=== PATIENT | male | born 1940 | race Caucasian/White ===

== ENCOUNTER 2019-02-21 20:39 | Emergency (ER) | payer BC ==
--- NOTE | 2019-02-21 21:28 | Emergency Department Record ---
History of Present Illness - General Chief complaint: Weakness Stated complaint: WEAKNESS,HEADACHE Time Seen by Provider: 02/21/19 21:23 Source: Patient Mode of Arrival: Ambulatory Limitations: No limitations - History of Present Illness Initial comments: 78 yo male presents to ED for intermittent symptoms of "lightheadedness" that occurred this afternoon around 13:00, again this evening. Following the first occurrence, patient went home, ate something thinking perhaps his blood glucose was low. Patient then laid down, felt better this evening until just prior to arrival. Patient reports intermittent headache as well, very mild currently. Patient denies fevers, chills, cough, urinary symptoms, or recent illness. Patient denies head injury, but does take Eliquis. MD Complaint: Generalized weakness Onset/Timin -: Hour(s) Location: Generalized Severity: Moderate Consistency: Intermittent Improves with: None Worsens with: None Associated Symptoms: Headaches - Joy Coma Scale Eye Response: (4) Open spontaneously Motor Response: (6) Obeys commands Verbal Response: (5) Oriented [place] Total: 15 - Related Data Home Medications Medication Instructions Recorded Confirmed Last Taken Apixaban [Eliquis] 1 tab PO DAILY 02/21/19 02/21/19 02/21/19 Carvedilol 1 tab PO BID 02/21/19 02/21/19 02/21/19 Clopidogrel Bisulfate [Clopidogrel] 1 tab PO DAILY 02/21/19 02/21/19 02/21/19 Donepezil HCl 1 tab PO DAILY 02/21/19 02/21/19 02/21/19 Memantine HCl [Memantine HCl ER] 1 tab PO DAILY 02/21/19 02/21/19 02/21/19 Allergies Allergy/AdvReac Type Severity Reaction Status Date / Time No Known Drug Allergies Allergy Verified 02/10/15 06:52 Travel Screening - Travel/Exposure Within Last 30 Days Have you traveled within the last 30 days?: No - Travel/Exposure Within Last Year Have you traveled outside the [place] in the last year?: No - Additonal Travel Details Have you been exposed to anyone with a communicable illness?: No - Travel Symptoms Symptom Screening: None Review of Systems Constitutional: Reports: Weakness. Denies: Chills, Fever, Malaise, Night sweats Eyes: Denies: Eye discharge, Eye pain ENT: Denies: Congestion, Ear pain, Epistaxis Respiratory: Denies: Cough, Dyspnea Cardiovascular: Denies: Chest pain, Dyspnea on exertion Endocrine: Reports: Fatigue. Denies: Heat or cold intolerance Gastrointestinal: Denies: Abdominal pain, Nausea, Vomiting Genitourinary: Denies: Incontinence, Retention Musculoskeletal: Denies: Arthralgia, Back pain, Gout, Joint swelling Skin: Denies: Bruising, Change in color Neurological: Reports: Headache. Denies: Abnormal gait, Confusion, Numbness, Tingling, Tremors Psychiatric: Denies: Anxiety Hematological/Lymphatic: Denies: Anemia, Blood Clots Past Medical History - SOCIAL HISTORY Smoking Status: Never smoker Alcohol Use: None Drug Use: None - RESPIRATORY Hx Respiratory Disorders: No - CARDIOVASCULAR Hx Cardio Disorders: Yes Hx Hypertension: Yes Hx Irregular Heartbeat: Yes (a-fib) - NEURO Hx Neuro Disorders: Yes Hx Dementia: Yes (early stages) - GI Hx GI Disorders: No Hx Liver Disease: Yes ("fatty liver") - Hx Genitourinary Disorders: No - ENDOCRINE Hx Endocrine Disorders: No Hx Thyroid Disease: Yes (slow) - MUSCULOSKELETAL Hx Musculoskeletal Disorders: No - PSYCH Hx Psych Problems: No - HEMATOLOGY/ONCOLOGY Hx Hematology/Oncology Disorders: No Family Medical History Any Significant Family History?: Yes Family Hx Comment (NOT TO BE USED IN PLACE OF ITEMS BELOW): thyroid-mother Hx Heart Disease: Father Hx Stroke: Mother Physical Exam - General General Appearance: Alert, Oriented x3, Cooperative, Mild distress Limitations: No limitations - Head Head exam: Atraumatic, Normocephalic, Normal inspection Head exam detail: negative: Abrasion, Contusion, Renae's sign, General tenderness, Hematoma, Laceration - Eye Eye exam: Normal appearance. negative: Conjunctival injection, Periorbital swelling, Periorbital tenderness, Scleral icterus - ENT Ear exam: negative: Auricular hematoma, Auricular trauma Nasal Exam: negative: Active bleeding, Discharge, Dried blood, Foreign body Mouth exam: negative: Drooling, Laceration, Muffled voice, Tongue elevation - Neck Neck exam: Normal inspection. negative: Meningismus, Tenderness - Respiratory Respiratory exam: Normal lung sounds bilaterally. negative: Chest wall tenderness, Rhonchi, Stridor, Wheezes - Cardiovascular Cardiovascular Exam: Regular rate, Normal rhythm, Normal heart sounds - GI/Abdominal GI/Abdominal exam: Soft, Distended. negative: Rebound, Rigid, Tenderness - Rectal Rectal exam: Deferred - exam: Deferred - Extremities Extremities exam: Other (Pale nail beds on examination.). negative: Joint swelling - Back Back exam: Denies: CVA tenderness (R), CVA tenderness (L) - Neurological Neurological exam: Alert, Normal gait, Oriented X3 - Psychiatric Psychiatric exam: Normal affect, Normal mood - Skin Skin exam: Normal color. negative: Abrasion Type of lesion: negative: abrasion Course Vital Signs 02/21/19 20:44 Temperature 97.7 F Pulse Rate [ 64 Pulse Ox Probe] Respiratory 20 Rate Blood Pressure 120/73 [Left Arm] Pulse Ox 92 L - Reevaluation(s) Reevaluation #1: 02/21/19 21:54 EKG: NSR 60 Normal axis, normal intervals No acute ST-T wave changes are present Reevaluation #2: 02/21/19 21:58 Laboratory studies were reviewed and are grossly unremarkable for an acute process. Reevaluation #3: 02/21/19 22:39 CT Brain: No acute process Patient was updated on all results, no evidence for an acute CVA/intracranial hemorrhage on examination. No evidence for acute infection. Patient reports that he is feeling at his baseline currently, denies vertigo/lightheadedness currently. Patient appears stable for discharge with instructions to stay hydrated, take care with position changes. Patient appears stable for discharge at this time. Medical Decision Making - Lab Data Result diagrams: 02/21/19 21:30 02/21/19 21:30 Disposition Disposition: Discharge Clinical Impression: Light-headed feeling Disposition: Home, Self-Care Condition: (2) Stable Instructions: Lightheadedness (ED) Additional Instructions: Return to ED if your symptoms worsen or if you have any concerns. Drink plenty of fluids, take care with position changes. Follow-up with your family doctor in 3-5 days as directed. Forms: Patient Portal Access Time of Disposition: 22:39 Quality - Quality Measures Quality Measures: N/A - Blood Pressure Screening Does Patient Have Any of the Following: No Blood Pressure Classification: Pre-Hypertensive BP Reading Systolic Measurement: 175 Diastolic Measurement: 86 Screening for High Blood Pressure: < Pre-Hypertensive BP, F/U Documented > [G8950] Pre-Hypertensive Follow-up Interventions: Referral to alternative/primary care provider.
[2019-02-21] MEDS ORDERED: 0.9 % SODIUM CHLORIDE 1000ML 500 ML IV SCH (21:30)
[2019-02-21 21:37] LABS: ABSOLUTE NEUTROPHIL COUNT 4.74; BASO % 0.7 % (0-6); EOS % 1.7 % (0-6); GRAN % 57.3 % (47-80); HEMATOCRIT 46.5 % (42.0-52.0); HEMOGLOBIN 14.6 gm/dl (14.0-18.0); LYMPH % 29.7 % (16-45); MEAN CELL VOLUME 96.1 fl (81-97); MEAN CORPUSCULAR HEMOGLOBIN 30.2 pg (27-33); MEAN CORPUSCULAR HGB CONC 31.4 g/dl (32-36); MEAN PLATELET VOLUME 9.3 fl (7.4-10.4); MONO % 10.6 % (0-9); PLATELET COUNT 270 K/uL (130-400); RED BLOOD COUNT 4.84 M/uL (4.40-5.70); RED CELL DISTRIBUTION WIDTH 16.4 % (11.5-14.5); WHITE BLOOD COUNT W/O DIFF 8.3 K/uL (4.2-12.2)
[2019-02-21 21:43] LABS: URINE APPEARANCE CLEAR; URINE BILIRUBIN MODERATE (NEGATIVE); URINE BLOOD NEGATIVE (NEGATIVE); URINE COLOR YELLOW; URINE KETONE TRACE (NEGATIVE); URINE LEUKOCYTE ESTERASE NEGATIVE (NEGATIVE); URINE NITRITE NEGATIVE (NEGATIVE)
[2019-02-21 21:44] LABS: URINE PROTEIN 300 mg/dL (NEGATIVE)
[2019-02-21 21:45] LABS: URINE BACTERIA NONE SEEN; URINE EPITHELIAL CELLS 0 - 2 (FEW); URINE RBC 0 - 2 (NONE SEEN); URINE WBC 0 - 2 (0-2/hpf)
[2019-02-21 21:50] LABS: BLOOD UREA NITROGEN 16 mg/dL (8-23); CREATININE 1.2 mg/dL (0.7-1.2); EST GLOMERULAR FILTRATION RATE > 60 mL/min
[2019-02-21 21:51] LABS: TOTAL PROTEIN 6.5 g/dL (6.6-8.7)
[2019-02-21 21:53] LABS: GLUCOSE,RANDOM 146 mg/dL (74-109)
[2019-02-21 21:55] LABS: ALT/SGPT 118 U/L (<41)
[2019-02-21 21:56] LABS: ALB/GLOB RATIO 1.6 (1.1-1.8); ALKALINE PHOSPHATASE 86 U/L (40-129); AST/SGOT 143 U/L (10.0-50.0)
--- NOTE | 2019-02-22 21:10 | CT SCAN REPORT ---
EXAM: CT SCAN HEAD WO CONTRAST HISTORY: HEADACHE. ON ELIQUIS. WEAKNESS AND DIARRHEA THIS AFTERNOON. TECHNIQUE: Standard CT imaging of the brain was performed in the axial plane without contrast. Additional coronal and sagittal reformatted images were also performed. COMPARISON: None. FINDINGS: There is mild generalized atrophy. The ventricles and subarachnoid spaces are otherwise normal. Mild chronic small vessel ischemic changes are present within the periventricular and subcortical white matter of both cerebral hemispheres. There is no mass, mass effect, intracranial hemorrhage, visible acute infarct, or abnormal extraaxial fluid. The skull is intact. There is chronic-appearing complete opacification of the right sphenoid sinus with associated mucoperiosteal thickening. Minor mucous retention cyst formation is present within the maxillary sinuses bilaterally. No sinus air fluid levels are identified. The mastoid air cells are clear. The orbits are unremarkable. IMPRESSION: 1. NO ACUTE INTRACRANIAL ABNORMALITY. 2. MILD ATROPHY AND CHRONIC SMALL VESSEL ISCHEMIC CHANGES. 3. CHRONIC-APPEARING RIGHT SPHENOID SINUSITIS. JOB NUMBER: [id number] [facility]
== END 2019-02-21 22:55 | disposition home or self-care (01) ==
LOC: ER 20:39
DX: R42 Dizziness and giddiness (principal); R51 Headache; R53.1 Weakness; I10 Essential (primary) hypertension; Z79.01 Long term (current) use of anticoagulants
CPT/HCPCS: 70450; 80053; 81001; 85025; 93005; 93010; 96360; 99284; J7030